=== PATIENT | female | born 1975 | race Caucasian/White ===

== ENCOUNTER → 2017-10-23 16:33 | Outpatient (CLI) | payer BC ==
[2015-11-20 11:48] VITALS: BMI 21.6
[~2017-10-23 16:33] MED LIST: ATIVAN0.5 MG PO
== END | disposition home or self-care (01) ==
LOC: D.MAMMO 14:00
DX: Z12.31 Encounter for screening mammogram for malignant neoplasm of breast (principal)

== ENCOUNTER → 2018-05-18 15:15 | Outpatient (CLI) | payer BC ==
[2015-11-20 11:48] VITALS: BMI 21.6
== END | disposition home or self-care (01) ==
LOC: D.MRI 15:15
DX: M25.561 Pain in right knee (principal)